=== PATIENT | female | born 1985 | race African-American/Black ===

== ENCOUNTER 2018-07-16 09:16 | Emergency (ER) | payer OTHER, MEDICAID ==
[~2018-07-16] VITALS: Ht 170.2 cm; Wt 74.0 kg
[~2018-07-16 09:16] MED LIST: IRON; MOTRIN; [UNRECOGNIZED DRUG - OTHER]; naprosyn; oxycodone
[2018-07-16] MEDS ORDERED: KETOROLAC 30MG/ML VIAL IV STA (11:03)
[2018-07-16] MEDS ORDERED: SODIUM CHLORIDE 0.9% 1,000 ML IV ONE (11:03)
[2018-07-16 11:49] LABS: CLARITY URINE CLOUDY (CLEAR); COLOR URINE YELLOW (YELLOW); KETONES URINE TRACE (NEGATIVE); LEUKOCYTE ESTERASE URINE NEGATIVE (NEGATIVE); NITRITE URINE NEGATIVE (NEGATIVE); OCCULT BLOOD URINE NEGATIVE (NEGATIVE); PROTEIN URINE NEGATIVE (NEGATIVE); SPECIFIC GRAVITY URINE 1.034 (1.005-1.030)
[2018-07-16 12:18] LABS: BASOPHILS % 0.4 % (0.0-2.0); EOSINOPHILS % 2.5 % (0.0-5.0); HEMATOCRIT. 28.9 % (36.0-48.0); HEMOGLOBIN. 9.9 g/dL (12.0-16.0); LYMPHOCYTES % 22.5 % (20.0-50.0); MEAN CORPUSCULAR HEMOGLOBIN 31.3 pg (28.0-32.0); MEAN PLATELET VOLUME 9.3 fl (7.4-10.4); MONOCYTES % 6.2 % (2.0-8.0); NEUTROPHILS % 68.4 % (40.0-76.0); PLATELET 304 x1000/uL (130-400); RED BLOOD CELL COUNT 3.17 mill/uL (4.2-5.4); RED CELL DISTRIBUTION WIDTH 13.2 % (11.6-14.6)
[2018-07-16 12:23] LABS: CHLORIDE 104 mEq/L (98-107)
[2018-07-16 13:10] VITALS: BP 122/77
== END 2018-07-16 13:10 | disposition home or self-care (01) ==
LOC: ER 09:16
DX: N39.0 Urinary tract infection, site not specified (principal); D64.9 Anemia, unspecified; Z79.899 Other long term (current) drug therapy
CPT/HCPCS: 36415; 80053; 81003; 83690; 85025; 96374; 99283; J1885; J7030

== ENCOUNTER 2018-07-22 15:29 | Emergency (ER) | payer OTHER, MEDICAID ==
[~2018-07-22] VITALS: Ht 170.2 cm; Wt 74.0 kg
[2018-07-22] MEDS ORDERED: SODIUM CHLORIDE 0.9% 1,000 ML IV ONE (16:42)
[2018-07-22] MEDS ORDERED: FAMOTIDINE 20MG/2ML VIAL IV STA (16:42)
[2018-07-22] MEDS ORDERED: VISCOUS LIDOCAINE 2% 15 ML UDC PO STA (16:42)
[2018-07-22] MEDS ORDERED: MAGNESIUM/ALUMINUM HYDROXIDE/SIMETHICONE 30ML UDC PO STA (16:42)
[2018-07-22 17:32] LABS: CLARITY URINE CLEAR (CLEAR); COLOR URINE YELLOW (YELLOW); KETONES URINE NEGATIVE (NEGATIVE); LEUKOCYTE ESTERASE URINE NEGATIVE (NEGATIVE); NITRITE URINE NEGATIVE (NEGATIVE); OCCULT BLOOD URINE NEGATIVE (NEGATIVE); PROTEIN URINE NEGATIVE (NEGATIVE); SPECIFIC GRAVITY URINE 1.009 (1.005-1.030); UROBILINOGEN URINE 0.2 E.U./dL (0.2-1.0)
[2018-07-22 17:42] LABS: BASOPHILS % 0.6 % (0.0-2.0); EOSINOPHILS % 4.6 % (0.0-5.0); HEMATOCRIT. 32.5 % (36.0-48.0); HEMOGLOBIN. 10.8 g/dL (12.0-16.0); LYMPHOCYTES % 26.3 % (20.0-50.0); MEAN CORPUSCULAR HEMOGLOBIN 30.5 pg (28.0-32.0); MEAN CORPUSCULAR VOLUME 91.7 fL (81.0-99.0); MEAN PLATELET VOLUME 8.2 fl (7.4-10.4); NEUTROPHILS % 61.5 % (40.0-76.0); PLATELET 379 x1000/uL (130-400); RED BLOOD CELL COUNT 3.55 mill/uL (4.2-5.4)
[2018-07-22 17:48] LABS: INR 1.1; PROTHROMBIN TIME 10.7 sec (9.1-11.1)
[2018-07-22 17:50] LABS: CHLORIDE 104 mEq/L (98-107)
[2018-07-22 17:55] LABS: HCG SCREEN NEGATIVE
[2018-07-22 18:10] VITALS: BP 147/72
== END 2018-07-22 20:21 | disposition home or self-care (01) ==
LOC: ER 15:29
DX: K29.70 Gastritis, unspecified, without bleeding (principal); D64.9 Anemia, unspecified; Z87.440 Personal history of urinary (tract) infections
CPT/HCPCS: 36415; 74176; 76705; 80053; 81003; 81025; 83605; 83690; 84703; 85025; 85610; 96361; 96374; 99284; J3490; J7030

== ENCOUNTER 2019-10-02 12:40 | Emergency (ER) | payer OTHER, MEDICAID ==
[~2019-10-02] VITALS: Ht 172.7 cm; Wt 90.0 kg
[2019-10-02] MEDS ORDERED: ACETAMINOPHEN 325MG TABLET PO ONE (14:45)
[2019-10-02] MEDS ORDERED: VISCOUS LIDOCAINE 2% 15 ML UDC PO STA (15:11)
[2019-10-02 16:50] VITALS: BP 115/78
== END 2019-10-02 16:52 | disposition home or self-care (01) ==
LOC: ER 12:40
DX: J02.0 Streptococcal pharyngitis (principal)
CPT/HCPCS: 87430; 87804; 99283

== ENCOUNTER 2020-07-10 21:04 | Emergency (ER) | payer OTHER, MEDICAID ==
[~2020-07-10] VITALS: Ht 170.2 cm; Wt 76.0 kg
[2020-07-11] MEDS: SODIUM CHLORIDE 0.9% 1,000 ML IV ONE (00:45)
[2020-07-11] MEDS: KETOROLAC 30MG/ML VIAL IV STA (04:51)
[2020-07-11] MEDS: ONDANSETRON HCL 4MG/2ML INJ IV STA (04:52)
[2020-07-11 05:10] LABS: BASOPHILS % 0.6 % (0.0-2.0); EOSINOPHILS % 0.2 % (0.0-5.0); HEMATOCRIT. 39.4 % (36.0-48.0); HEMOGLOBIN. 13.2 g/dL (12.0-16.0); LYMPHOCYTES % 16.9 % (20.0-50.0); MEAN CORPUSCULAR HEMOGLOBIN 30.4 pg (28.0-32.0); MEAN PLATELET VOLUME 8.2 fl (7.4-10.4); MONOCYTES % 5.7 % (2.0-8.0); NEUTROPHILS % 76.6 % (40.0-76.0); PLATELET 336 x1000/uL (130-400); RED BLOOD CELL COUNT 4.33 mill/uL (4.2-5.4); RED CELL DISTRIBUTION WIDTH 13.2 % (11.6-14.6)
[2020-07-11 05:15] LABS: CHLORIDE 105 mEq/L (98-107)
[2020-07-11 06:31] LABS: CLARITY URINE CLEAR (CLEAR); COLOR URINE DARK YELLOW (YELLOW); KETONES URINE 3+ (NEGATIVE); LEUKOCYTE ESTERASE URINE 1+ (NEGATIVE); NITRITE URINE NEGATIVE (NEGATIVE); OCCULT BLOOD URINE 3+ (NEGATIVE); PROTEIN URINE TRACE (NEGATIVE); SPECIFIC GRAVITY URINE 1.028 (1.005-1.030)
[2020-07-11 07:17] VITALS: BP 138/83
== END 2020-07-11 07:21 | disposition home or self-care (01) ==
LOC: ER 21:04
DX: M54.5 Low back pain (principal); R10.9 Unspecified abdominal pain; R11.2 Nausea with vomiting, unspecified
CPT/HCPCS: 36415; 74176; 80053; 81003; 83605; 83690; 85025; 93005; 96361; 96374; 96375; 99285; J1885; J2405; J7030

== ENCOUNTER 2021-11-21 15:22 | Emergency (ER) | payer OTHER ==
[~2021-11-21] VITALS: Ht 170.2 cm; Wt 77.0 kg
[2021-11-21 15:47] VITALS: BP 151/107
[2021-11-21 16:23] LABS: BASOPHILS % 0.5 % (0.0-2.0); MEAN CORPUSCULAR HEMOGLOBIN 30.8 pg (28.0-32.0); MEAN CORPUSCULAR VOLUME 92.1 fL (81.0-99.0); MEAN PLATELET VOLUME 8.4 fl (7.4-10.4); MONOCYTES % 5.4 % (2.0-8.0); NEUTROPHILS % 73.1 % (40.0-76.0); PLATELET 321 x1000/uL (130-400); RED BLOOD CELL COUNT 4.24 mill/uL (4.2-5.4); RED CELL DISTRIBUTION WIDTH 13.6 % (11.6-14.6)
[2021-11-21 16:30] LABS: CHLORIDE 105 mEq/L (98-107)
[2021-11-21 17:38] LABS: CLARITY URINE CLEAR (CLEAR); COLOR URINE YELLOW (YELLOW); KETONES URINE TRACE (NEGATIVE); LEUKOCYTE ESTERASE URINE TRACE (NEGATIVE); NITRITE URINE NEGATIVE (NEGATIVE); OCCULT BLOOD URINE 3+ (NEGATIVE); PH URINE 6.5 (4.5-8.0); PROTEIN URINE 1+ (NEGATIVE); SPECIFIC GRAVITY URINE 1.022 (1.005-1.030)
[2021-11-21 20:02] LABS: HCG SCREEN NEGATIVE
[2021-11-21] MEDS ORDERED: ONDANSETRON HCL 4MG/2ML INJ IV ONE (22:45)
[2021-11-21] MEDS ORDERED: SODIUM CHLORIDE 0.9% 1,000 ML IV ONE (23:15)
[2021-11-22] MEDS ORDERED: ONDANSETRON HCL 4MG TABLET PO ONE (00:15)
[2021-11-22] MEDS ORDERED: KETOROLAC 60MG/2ML VIAL IM ONE (00:15)
[2021-11-22] MEDS ORDERED: KETOROLAC 15MG/ML VIAL IV ONE (00:15)
[2021-11-22] MEDS ORDERED: ONDA4TAB5 MT (01:01)
== END 2021-11-22 01:55 | disposition home or self-care (01) ==
LOC: ER 15:22
DX: R10.9 Unspecified abdominal pain (principal); D64.9 Anemia, unspecified
CPT/HCPCS: 36415; 74176; 76705; 80053; 81003; 83690; 84703; 85025; 99284; J1885; J7030; Q0162